=== PATIENT | female | born 1945 | race Caucasian/White ===

== ENCOUNTER 2019-04-18 14:11 | Emergency (ER) | payer OTHER, BC ==
--- NOTE | 2019-04-18 15:15 | RAD REPORT ---
EXAM DESCRIPTION: RADSacrum And Coccyx04/18/2019 3:03 pm CLINICAL HISTORY: Back pain status post fall FINDINGS: No fracture is seen. Mild anterior subluxation L4 on L5
[2019-04-18] MEDS ORDERED: CODEINE 30MG/APAP 300MG TAB ONE (15:26)
--- NOTE | 2019-04-18 15:40 | EDPHYS ---
Physician Documentation [facility] Name: Mary Parkinson Age: 73 yrs Sex: Female : 1945 Arrival Date: 04/18/2019 Time: 14:13 Bed 19 Private MD: ED Physician Silvano Ch HPI: 04/18 14:42 This 73 yrs old Female presents to ER via Ambulatory with complaints of jmm Tailbone Pain. 14:42 The patient presents with pain that is acute. The symptoms are located in the coccyx jmm area. Onset: The symptoms/episode began/occurred acutely, 1 week(s) ago. Modifying factors: The patient symptoms are alleviated by remaining still, the patient symptoms are aggravated by. This is a 73 year old female with a history of DM, HTN, that presents to the ED with complaints of tailbone pain after hitting a rock while tubing 1 week prior. Patient denies other injury. . Historical: - Allergies: 14:29 Sulfa (Sulfonamide Antibiotics); aj1 - PMHx: 14:29 Diabetes - NIDDM; Hypertension; aj1 - Immunization history:: Flu vaccine is up to date. - Social history:: Smoking status: Patient/guardian denies using tobacco. - Ebola Screening: : Patient denies travel to an Ebola-affected area in the 21 days before illness onset. ROS: 14:42 Constitutional: Negative for fever, chills, and weight loss, Cardiovascular: Negative jmm for chest pain, palpitations, and edema, Respiratory: Negative for shortness of breath, cough, wheezing, and pleuritic chest pain. 14:42 Back: Positive for pain with movement. 14:42 All other systems are negative. Exam: 14:42 Head/Face: atraumatic. Eyes: EOMI, no conjunctival erythema appreciated ENT: Moist jmm Mucus Membranes Neck: Trachea midline, Supple Chest/axilla: Normal chest wall appearance and motion. Cardiovascular: Regular rate and rhythm. No edema appreciated Respiratory: Normal respirations, no respiratory distress appreciated Abdomen/GI: Non distended, soft 14:42 Skin: General appearance color normal MS/ Extremity: Moves all extremities, no obvious deformities appreciated, no edema noted to the lower extremities Neuro: Awake and alert, normal gait Psych: Behavior is normal, Mood is normal, Patient is cooperative and pleasant 14:42 Constitutional: The patient appears in no acute distress, alert, awake. 14:42 Back: pain on palpation of the sacral region, no lumbar midline tenderness. Vital Signs: 14:29 BP 152 / 66; Pulse 85; Resp 18; Temp 98.9; Pulse Ox 96% on R/A; Weight 65.77 kg (R); aj1 Height 4 ft. 11 in. (149.86 cm) (R); 15:31 BP 148 / 71; Pulse 81; Resp 18; Pulse Ox 97% on R/A; Pain 5/10; em 14:29 Body Mass Index 29.29 (65.77 kg, 149.86 cm) aj1 MDM: 14:42 Patient medically screened. [facility] 15:37 Data reviewed: vital signs, nurses notes. Counseling: I had a detailed discussion with [facility] the patient and/or guardian regarding: the historical points, exam findings, and any diagnostic results supporting the discharge/admit diagnosis, radiology results, the need for outpatient follow up, to return to the emergency department if symptoms worsen or persist or if there are any questions or concerns that arise at home. ED course: Decreased pain on reevaluation. Xray negative for coccyx fracture. Patient advised to follow up with pcp and otherwise given strict return precautions. patient understood and agrees with the plan of care. . 04/18 14:47 Order name: Sacrum And Coccyx XRAY; Complete Time: 15:27 [facility] Administered Medications: 15:13 Drug: Tylenol #3 (300 mg-30 mg) 1 tablet Route: PO; em 15:31 Follow up: Response: No adverse reaction em Disposition: 16:54 Co-signature as Attending Physician, Silvano Ch MD. rn Disposition: 04/18/19 15:39 Discharged to Home. Impression: Sprain of other parts of lumbar spine and pelvis. - Condition is Stable. - Discharge Instructions: Tailbone Injury. - Prescriptions for Tylenol- Codeine #3 300-30 mg Oral Tablet - take 1 tablet by ORAL route every 6 hours As needed; 12 tablet. - Medication Reconciliation Form, Thank You Letter, Antibiotic Education, Prescription Opioid Use form. - Follow up: Private Physician; When: 2 - 3 days; Reason: Recheck today's complaints, Continuance of care, Re-evaluation by your physician. Signatures: Dispatcher [employer] EDElizabeth Gaytan, RN RN aj1 Jorden Whitlock PA PA Marshall Ramos, PLUMBING SERVICE TECHNICIAN PLUMBING SERVICE TECHNICIAN em Silvano Ch MD MD rn employee health: (The following items were deleted from the chart) 15:55 15:39 04/18/2019 15:39 Discharged to Home. Impression: Sprain of other parts of lumbar em spine and pelvis. Condition is Stable. Forms are Medication Reconciliation Form, Thank You Letter, Antibiotic Education, Prescription Opioid Use. Follow up: Private Physician; When: 2 - 3 days; Reason: Recheck today's complaints, Continuance of care, Re-evaluation by your physician. marie
--- NOTE | 2019-04-18 15:40 | ER ---
Nurse's Notes [facility] Name: Mary Parkinson Age: 73 yrs Sex: Female : 1945 Arrival Date: 04/18/2019 Time: 14:13 Bed 19 Private MD: Diagnosis: Sprain of other parts of lumbar spine and pelvis Presentation: 04/18 14:27 Presenting complaint: Patient states: "I went tubing with my daughter last week, my aj1 tube went over the rocks and I think it probably bruised my tailbone". Transition of care: patient was not received from another setting of care. Onset of symptoms was March 2019. Risk Assessment: Do you want to hurt yourself or someone else? Patient reports no desire to harm self or others. Initial Sepsis Screen: Does the patient meet any 2 criteria? No. Patient's initial sepsis screen is negative. Does the patient have a suspected source of infection? No. Patient's initial sepsis screen is negative. Care prior to arrival: None. 14:27 Method Of Arrival: Ambulatory aj 14:27 Acuity: HERSON 4 aj1 Triage Assessment: 14:29 General: Appears in no apparent distress. comfortable, Behavior is calm, cooperative, aj1 appropriate for age. Pain: Complains of pain in coccyx Pain currently is 7 out of 10 on a pain scale. EENT: No signs and/or symptoms were reported regarding the EENT system. Neuro: Level of Consciousness is awake, alert, obeys commands. Cardiovascular: Patient's skin is warm and dry. Respiratory: Airway is patent Respiratory effort is even, unlabored, Respiratory pattern is regular, symmetrical. GI: No signs and/or symptoms were reported involving the gastrointestinal system. : No signs and/or symptoms were reported regarding the genitourinary system. Derm: No signs and/or symptoms reported regarding the dermatologic system. Skin is pink, warm \\T\\ dry. normal. Musculoskeletal: No signs and/or symptoms reported regarding the musculoskeletal system. Circulation, motion, and sensation intact. Historical: - Allergies: 14: Sulfa (Sulfonamide Antibiotics); aj1 - PMHx: 14:29 Diabetes - NIDDM; Hypertension; aj1 - Immunization history:: Flu vaccine is up to date. - Social history:: Smoking status: Patient/guardian denies using tobacco. - Ebola Screening: : Patient denies travel to an Ebola-affected area in the 21 days before illness onset. Screenin:55 Abuse screen: Denies threats or abuse. Nutritional screening: No deficits noted. em Tuberculosis screening: No symptoms or risk factors identified. Fall Risk None identified. Assessment: 14:55 General: Appears in no apparent distress. comfortable, Behavior is calm, cooperative. em Pain: Complains of pain in coccyx Pain currently is 6 out of 10 on a pain scale. Neuro: Level of Consciousness is awake, alert, obeys commands, Oriented to person, place, time, situation. Cardiovascular: Capillary refill < 3 seconds Patient's skin is warm and dry. Respiratory: Airway is patent Respiratory effort is even, unlabored, Respiratory pattern is regular, symmetrical. GI:. GI: Patient currently denies nausea, vomiting. Derm: Skin is intact, is healthy with good turgor, Skin is pink, warm \\T\\ dry. Musculoskeletal: Capillary refill < 3 seconds, Range of motion: intact in all extremities. 15:31 Reassessment: Patient appears in no apparent distress at this time. Patient and/or em family updated on plan of care and expected duration. Pain level reassessed. Patient is alert, oriented x 3, equal unlabored respirations, skin warm/dry/pink. family at bedside. Vital Signs: 14:29 BP 152 / 66; Pulse 85; Resp 18; Temp 98.9; Pulse Ox 96% on R/A; Weight 65.77 kg (R); aj1 Height 4 ft. 11 in. (149.86 cm) (R); 15:31 BP 148 / 71; Pulse 81; Resp 18; Pulse Ox 97% on R/A; Pain 5/10; em 14:29 Body Mass Index 29.29 (65.77 kg, 149.86 cm) aj1 ED Course: 14:13 Patient arrived in ED. as 14:28 Triage completed. aj1 14:29 Arm band placed on Patient placed in an exam room. [facility] 14:35 Jorden Whitlock PA is PHCP. [facility] 14:35 Silvano Ch MD is Attending Physician. [facility] 14:48 Marshall Banks LVN is Primary Nurse. em 14:55 Patient has correct armband on for positive identification. Bed in low position. Call em light in reach. Adult w/ patient. 15:05 Sacrum And Coccyx XRAY In Process Unspecified. EDMS 15:48 No provider procedures requiring assistance completed. Patient did not have IV access em during this emergency room visit. Administered Medications: 15:13 Drug: Tylenol #3 (300 mg-30 mg) 1 tablet Route: PO; em 15:31 Follow up: Response: No adverse reaction em Outcome: 15:39 Discharge ordered by . marie 15:52 Discharged to home ambulatory, with family. em 15:52 Condition: good 15:52 Discharge instructions given to patient, Instructed on discharge instructions, follow up and referral plans. medication usage, Demonstrated understanding of instructions, follow-up care, medications, Prescriptions given X 1. 15:55 Patient left the ED. em Signatures: Dispatcher [employer] Elizabeth Blancas, RN RN aj1 Jorden Whitlock PA PA Marshall Ramos, BARGE ENGINEER BARGE ENGINEER em Tonia Vasquez as
== END 2019-04-18 15:55 | disposition home or self-care (01) ==
LOC: ER 14:11
DX: S33.5XXA Sprain of ligaments of lumbar spine, initial encounter (principal); S39.013A Strain of muscle, fascia and tendon of pelvis, initial encounter; W22.8XXA Striking against or struck by other objects, initial encounter; Y93.16 Activity, rowing, canoeing, kayaking, rafting and tubing; Y92.9 Unspecified place or not applicable; I10 Essential (primary) hypertension; Z88.2 Allergy status to sulfonamides
CPT/HCPCS: 72220; 99283

== ENCOUNTER 2019-06-27 19:36 | Emergency (ER) | payer OTHER, BC ==
--- OUTSIDE RECORDS SUMMARY | 2019-06-27 19:38 | XMS REPORT ---
:1945 Author Organization [facility] Address [address] [place] [address] Care Team Providers Name Role Phone LIZ POWELL Unavailable Unavailable Problems This patient has no known problems. Allergies, Adverse Reactions, Alerts This patient has no known allergies or adverse reactions. Medications This patient has no known medications. Results Test Description Test Time Test Comments Text Results Atomic Results Result Comments Accuc[facility]k 2017-09-05 12:03:00 Test Item Value Reference Range Comments Accuchek (test code=ACU) 264 mg/dL 70-110 [id number] 06:13:00 Test Item Value Reference Range Comments Accuchek (test code=ACU) 156 mg/dL 70-110 [id number] 05:22:00 Test Item Value Reference Range Comments Chemistry (test code=NA-T) 137 mmol/L 136-145 Chemistry (test code=K-T) 3.9 mmol/L 3.5-5.1 Chemistry (test code=CL) 100 mmol/L 98-107 Chemistry (test code=CO2) 30 mmol/L 23-31 Chemistry (test code=ANGP) 11 mmol/L 10-20 Chemistry (test code=BUN) 27 mg/dL 9.8-20.1 Chemistry (test code=CREATT) 0.83 mg/dL 0.6-1.1 Chemistry (test 67 Reference Range for Estimated code=EGFRMDRD) GFR: Greater than 90 mL/min/1.73 m2NOTE:The MDRD equation has not been validated for use with theelderly (over 70 years of age), women, patientswith serious comorbid condition or persons with extremes ofbody size, muscle mass, or nutritional status. Chemistry (test code=BCR) 32.53 Chemistry (test code=GLU-T) 153 mg/dL 83-110 Chemistry (test code=CA) 8.9 mg/dL 7.8-10.44 Chemistry (test code=ALB) 3.5 g/dL 3.4-4.8 Chemistry (test code=PHOS) 3.3 mg/dL 2.3-4.7 [id number] 05:22:00 Test Item Value Reference Range Comments Chemistry (test code=MG) 2.0 mg/dL 1.6-2.6 [id number] 20:57:00 Test Item Value Reference Range Comments Accuchek (test code=ACU) 246 mg/dL 110 [id number] 16:44:00 Test Item Value Reference Range Comments Accuchek (test code=ACU) 284 mg/dL [id number] 12:28:00 Test Item Value Reference Range Comments Accuchek (test code=ACU) 172 mg/dL [id number] 06:18:00 Test Item Value Reference Range Comments Accuchek (test code=ACU) 146 mg/dL [id number] 05:36:00 Test Item Value Reference Range Comments Chemistry (test code=NA-T) 138 mmol/L 136-145 Chemistry (test code=K-T) 3.8 mmol/L 3.5-5.1 Chemistry (test code=CL) 98 mmol/L 98-107 Chemistry (test code=CO2) 32 mmol/L 23-31 Chemistry (test code=ANGP) 12 mmol/L 10-20 Chemistry (test code=BUN) 20 mg/dL 9.8-20.1 Chemistry (test code=CREATT) 0.81 mg/dL 0.6-1.1 Chemistry (test 69 Reference Range for Estimated code=EGFRMDRD) GFR: Greater than 90 mL/min/1.73 m2NOTE:The MDRD equation has not been validated for use with theelderly (over 70 years of age), women, patientswith serious comorbid condition or persons with extremes ofbody size, muscle mass, or nutritional status. Chemistry (test code=BCR) 24.69 Chemistry (test code=GLU-T) 169 mg/dL 83-110 Chemistry (test code=CA) 9.3 mg/dL 7.8-10.44 Chemistry (test code=ALB) 3.6 g/dL 3.4-4.8 Chemistry (test code=PHOS) 3.2 mg/dL 2.3-4.7 [id number] 05:36:00 Test Item Value Reference Range Comments Chemistry (test code=MG) 2.0 mg/dL 1.6-2.6 [id number] 21:02:00 Test Item Value Reference Range Comments Accuchek (test code=ACU) 177 mg/dL 70-110 [id number] 17:28:00 Test Item Value Reference Range Comments Accuchek (test code=ACU) 122 mg/dL 70-110 Chemistry - [id number] 06:21:00 Test Item Value Reference Range Comments Chemistry - Specials (test code=TSH3) 2.0892 uIU/mL 0.35-4.94 [id number] 06:05:00 Test Item Value Reference Range Comments Chemistry (test code=NA-T) 140 mmol/L 136-145 Chemistry (test code=K-T) 3.4 mmol/L 3.5-5.1 Chemistry (test code=CL) 100 mmol/L 98-107 Chemistry (test code=CO2) 32 mmol/L 23-31 Chemistry (test code=ANGP) 11 mmol/L 10-20 Chemistry (test code=BUN) 17 mg/dL 9.8-20.1 Chemistry (test code=CREATT) 0.76 mg/dL 0.6-1.1 Chemistry (test 74 Reference Range for Estimated code=EGFRMDRD) GFR: Greater than 90 mL/min/1.73 m2NOTE:The MDRD equation has not been validated for use with theelderly (over 70 years of age), women, patientswith serious comorbid condition or persons with extremes ofbody size, muscle mass, or nutritional status. Chemistry (test code=BCR) 22.37 Chemistry (test code=GLU-T) 127 mg/dL 83-110 Chemistry (test code=CA) 9.0 mg/dL 7.8-10.44 Chemistry (test code=ALB) 3.5 g/dL 3.4-4.8 Chemistry (test code=PHOS) 3.8 mg/dL 2.3-4.7 [id number] 06:05:00 Test Item Value Reference Range Comments Chemistry (test code=CHOL) 114 mg/dl < 200 Desired Chemistry (test code=TRIG) 169 mg/dL Less than 150 Chemistry (test code=HDL) 31 mg/dL >60 Neg Risk Adult HDL levels in terms of risk for Coronary Heart Disease > or Equal to 60 mg/dL Negative Risk < 40 mg/dL HIGH Risk Chemistry (test code=LDL) 49 mg/dL Levels in terms of risk for coronary heart disease: Desirable: Less than 130 mg/dL Borderline High Risk: 130 - 159 mg/dL High Risk: Greater than 160 mg/dL Chemistry (test code=CRISK) 3.7 Less than 4.5 Adult levels in terms of risk for Coronary Heart Disease: Dangerous level: Greater than 8.3 High: 5.6 - 8.3 Average: 3.7 - 5.6 Below average: 2.5 - 3.7 Protection probable: Less than 2.5 [id number] 05:50:00 Test Item Value Reference Range Comments Accuchek (test code=ACU) 124 mg/dL 70-110 [id number] 21:59:00 Test Item Value Reference Range Comments Accuchek (test code=ACU) 116 mg/dL 70-110 [id number] 17:09:00 Test Item Value Reference Range Comments Accuchek (test code=ACU) 193 mg/dL 70-110 [id number] 15:43:00 Test Item Value Reference Range Comments Chemistry (test Less than 0.010 < 0.028 code=TROPI-T) ng/mL Reference Range 0.00 - 0.028 ng/mL Negative 0.029 - 0.29 ng/mL Indeterminate Greater or Equal to 0.3 ng/mL Strongly suggests ME [id number] 14:01:00 Test Item Value Reference Range Comments Accuchek (test code=ACU) 121 mg/dL 70-110 [id number] 13:46:00 Test Item Value Reference Range Comments Chemistry - Specials (test 14.60 ng/mL 7.0-31.4 NOTE: New Ranges Effective code=FOLATE) 04/07/02 Deficient: 0.35 - 3.37 ng/mL Indeterminate: 3.38 - 5.38 ng/mL Normal: Greater than 5.38 ng/mL Chemistry - Specials (test 206 pg/mL 211-911 code=VITB12) [id number] 13:17:00 Test Item Value Reference Range Comments Chemistry (test 0.010 ng/mL < 0.028 code=TROPI-T) Reference Range 0.00 - 0.028 ng/mL Negative 0.029 - 0.29 ng/mL Indeterminate Greater or Equal to 0.3 ng/mL Strongly suggests ME [id number] 13:10:00 Test Item Value Reference Range Comments Chemistry (test code=PHOS) 3.6 mg/dL 2.3-4.7 [id number] 13:10:00 Test Item Value Reference Range Comments Chemistry (test code=MG) 1.5 mg/dL 1.6-2.6 [id number] 10:49:00 Test Item Value Reference Range Comments Chemistry (test 3.3 ng/mL 0-6.6 code=CKMBM-T) Chemistry (test Less than 0.010 < 0.028 code=TROPI-T) ng/mL Reference Range 0.00 - 0.028 ng/mL Negative 0.029 - 0.29 ng/mL Indeterminate Greater or Equal to 0.3 ng/mL Strongly suggests ME Chemistry - BNP, HgbA1c, [id number] 10:16:00 Test Item Value Reference Range Comments Chemistry - BNP, HgbA1c, PTHi (test code=BNP) 75.3 pg/mL 0-100 [id number] 10:14:00 Test Item Value Reference Range Comments Chemistry (test code=CK) 151 U/L 29-168 [id number] 10:06:00 Test Item Value Reference Range Comments Chemistry (test code=NA-T) 140 mmol/L 136-145 Chemistry (test code=K-T) 3.5 mmol/L 3.5-5.1 Chemistry (test code=CL) 99 mmol/L 98-107 Chemistry (test code=CO2) 34 mmol/L 23-31 Chemistry (test code=ANGP) 11 mmol/L 10-20 Chemistry (test code=BUN) 14 mg/dL 9.8-20.1 Chemistry (test code=CREATT) 0.82 mg/dL 0.6-1.1 Chemistry (test 68 Reference Range for Estimated code=EGFRMDRD) GFR: Greater than 90 mL/min/1.73 m2NOTE:The MDRD equation has not been validated for use with theelderly (over 70 years of age), women, patientswith serious comorbid condition or persons with extremes ofbody size, muscle mass, or nutritional status. Chemistry (test code=GLU-T) 208 mg/dL 83-110 Chemistry (test code=CA) 9.5 mg/dL 7.8-10.44 Chemistry (test code=TBILI) 1.0 mg/dL 0.2-1.2 Chemistry (test code=TP) 7.5 g/dL 6.0-8.3 Chemistry (test code=ALB) 4.0 g/dL 3.4-4.8 Chemistry (test code=GLOB) 3.5 g/dL 2.4-3.5 Chemistry (test code=AG) 1.1 g/dL 1.2-2.2 Chemistry (test code=ALP) 69 U/L 40-150 Chemistry (test code=AST) 19 U/L 5-34 Chemistry (test code=ALT) 20 U/L 8-55 [id number] 10:06:00 Test Item Value Reference Range Comments Chemistry (test code=LIP) 29 U/L 8-78 [id number] 10:01:00 Test Item Value Reference Range Comments Coagulation (test 13.5 SEC 12.0-14.7 code=PT-T) Coagulation (test 1.0 ATTENTION: READ code=INR) CAREFULLY -The recommended therapeutic ranges for oral anticoagulanttreatments are: Low Intensity: 1.5 - 2.0 Moderate Intensity: 2.0 - 3.0 High Intensity (1): 2.5 - 3.5 High Intensity (2): 3.0 - 4.0 CRITICAL: > 4.0 Anticoagulant? NONEMedical Necessity SUSPECT COAGULOPATHYAnticoagulant? NONEMedical Necessity: SUSP [id number] 10:01:00 Test Item Value Reference Range Comments Coagulation (test code=PTT) 28.9 SEC 22.9-36.1 Anticoagulant? NONEMedical Necessity SUSPECT COAGULOPATHYAnticoagulant? NONEMedical Necessity: SUSP [id number] 10:01:00 Test Item Value Reference Range Comments Coagulation (test 0.31 *mcg/mL 0.27-0.43 * Reference Range Units: code=DDIMTT) mcg/mL of fibrinogen equivalent units(FEU)Based upon a retrospective study of [facility] patients in February 2006, a result of"Less than 0.44 mcg/mL FEU" is predictive of the absence ofa DVT or PE. Anticoagulant? NONEMedical Necessity SUSPECT COAGULOPATHYAnticoagulant? NONEMedical Necessity: SUSP [id number] 09:43:00 Test Item Value Reference Range Comments Hematology (test code=WBCT) 8.3 thou/uL 4.8-10.8 Hematology (test code=RBCT) 4.48 mill/uL 4.20-5.40 Hematology (test code=HGBT) 13.5 g/dL 12.0-16.0 Hematology (test code=HCTT) 41.5 % 36.0-47.0 Hematology (test code=MCV) 92.5 fl 81.0-99.0 Hematology (test code=MCH) 30.1 pg 27.0-31.0 Hematology (test code=MCHC) 32.6 g/dL 32.0-36.0 Hematology (test code=RDW) 12.0 % 11.5-14.5 Hematology (test code=PLTT) 213 thou/uL 130-400 Hematology (test code=MPV) 6.7 fL 7.4-10.4 Hematology (test code=%NEUT) 60.3 % 42.0-75.0 Hematology (test code=%LYMPH) 28.7 % 21.0-51.0 Hematology (test code=%MONO) 6.2 % 0.0-10.0 Hematology (test code=%EOS) 4.1 % 0.0-10.0 Hematology (test code=%BASO) 0.8 % 0.0-1.0 Hematology (test code=NEUT#) 5.0 thou/uL 1.40-6.50 Hematology (test code=LYMPH#) 2.4 thou/uL 1.20-3.40 Hematology (test code=MONO#) 0.5 thou/uL 0.11-0.59 Hematology (test code=EOS#) 0.3 thou/uL 0.0-0.7 Hematology (test code=BASO#) 0.1 thou/uL 0.0-0.2
[2019-06-27] MEDS ORDERED: DOXYCYCLINE 100 MG CAP PO ONE (20:18)
[2019-06-27] MEDS ORDERED: CODEINE 30MG/APAP 300MG TAB ONE (20:18)
[2019-06-27] MEDS ORDERED: SMZ./TMP. 800/160 MG TABLET ONE (20:18)
[2019-06-27] MEDS ORDERED: CLINDAMYCIN HCL 150 MG CAP ONE (20:22)
[2019-06-27] MEDS ORDERED: CLINDAMYCIN IV 150 MG/ML (4 mL) VIAL ONE (20:23)
--- NOTE | 2019-06-27 20:27 | ER ---
Nurse's Notes [facility] Name: Mary Parkinson Age: 74 yrs Sex: Female : 1945 Arrival Date: 06/27/2019 Time: 19:41 Bed 5 Private MD: Diagnosis: Cellulitis of right upper limb Presentation: 06/27 19:45 Presenting complaint: Patient states: that she got her nails done yesterday and now is fc having redness, warm and yellow drainage around left thumb nail. [place] Also has red, scabbed areas to left abd, area is tender to touch. Transition of care: patient was not received from another setting of care. Onset of symptoms was June 26, 2019. Risk Assessment: Do you want to hurt yourself or someone else? Patient reports no desire to harm self or others. Initial Sepsis Screen: Does the patient meet any 2 criteria? No. Patient's initial sepsis screen is negative. Does the patient have a suspected source of infection? Yes: Skin breakdown/wound. Care prior to arrival: None. 19:45 Method Of Arrival: Ambulatory fc 19:45 Acuity: HERSON 3 fc Historical: - Allergies: 20:06 Sulfa (Sulfonamide Antibiotics); fc - Home Meds: 20:06 amlodipine oral [Active]; Lisinopril Oral [Active]; Atenolol Oral [Active]; Metformin fc Oral [Active]; Lantus Sub-Q [Active]; Lasix Oral [Active]; B12 [Active]; Potassium Chloride Oral [Active]; Trulicity subcutaneous subcutaneous [Active]; - PMHx: 20:06 Diabetes - NIDDM; Hypertension; Pneumonia; edema; fc - PSHx: 20:06 Tonsillectomy; fc - Immunization history:: Last tetanus immunization: unknown. - Social history:: Smoking status: Patient/guardian denies using tobacco, Patient uses alcohol, but reports only rare drinking. - Ebola Screening: : Patient negative for fever greater than or equal to 101.5 degrees Fahrenheit, and additional compatible Ebola Virus Disease symptoms Patient denies exposure to infectious person Patient denies travel to an Ebola-affected area in the 21 days before illness onset. Screenin:53 Abuse screen: Denies threats or abuse. Denies injuries from another. Nutritional ak1 screening: No deficits noted. Tuberculosis screening: No symptoms or risk factors identified. Fall Risk None identified. Assessment: 19:53 General: Appears in no apparent distress. Behavior is calm, cooperative. Pain: ak1 Complains of pain in dorsal aspect of distal phalanx of left thumb and left thumbnail. Neuro: Level of Consciousness is awake, alert, obeys commands, Oriented to person, place, time, situation, Bulk System Operator are equal bilaterally Moves all extremities. Gait is steady, Speech is normal, Facial symmetry appears normal. Cardiovascular: No deficits noted. Respiratory: Airway is patent Respiratory effort is even, unlabored, Respiratory pattern is regular. GI: wounds to left abd. : No signs and/or symptoms were reported regarding the genitourinary system. EENT: No signs and/or symptoms were reported regarding the EENT system. Derm: wound to left abd and wound to left thumb with swelling. Musculoskeletal: No signs and/or symptoms reported regarding the musculoskeletal system. 20:29 Reassessment: No changes from previously documented assessment. Patient and/or family tl1 updated on plan of care and expected duration. Pain level reassessed. Patient is alert, oriented x 3, equal unlabored respirations, skin warm/dry/pink. Vital Signs: 19:45 BP 161 / 74; Pulse 89; Resp 18; Temp 98.3(O); Pulse Ox 95% on R/A; Weight 65.77 kg (R); fc Height 4 ft. 11 in. (149.86 cm) (R); Pain 8/10; 20:41 BP 128 / 62; Pulse 87; Resp 17; Pulse Ox 96% on R/A; Pain 8/10; tl1 19:45 Body Mass Index 29.29 (65.77 kg, 149.86 cm) ED Course: 19:41 Patient arrived in ED. mr 19:45 Arm band placed on Patient placed in an exam room, on a stretcher. 19:53 Magui Snow, RN is Primary Nurse. ak1 19:53 Patient has correct armband on for positive identification. Bed in low position. Call ak1 light in reach. Side rails up X 1. Adult w/ patient. Pulse ox on. NIBP on. 19:56 Fallon Jackson FNP is PHCP. sc 19:56 Nima Ames MD is Attending Physician. sc 20:02 Triage completed. 20:42 Assist provider with bone marrow aspiration. Patient did not have IV access during this tl1 emergency room visit. Administered Medications: 20:25 Drug: Doxycycline 100 mg Route: PO; tl1 20:42 Follow up: Response: No adverse reaction; No change in condition tl1 20:26 Drug: Tylenol #3 (300 mg-30 mg) 1 tablet Route: PO; tl1 20:41 Follow up: Response: No adverse reaction; No change in condition tl1 20:27 Not Given (Duplicate Order): Clindamycin 900 mg IM once tl1 20:28 Drug: Clindamycin 300 mg Route: IM; Site: right gluteus; tl1 20:41 Follow up: Response: No adverse reaction; No change in condition tl1 Point of Care Testing: Blood Glucose: 20:00 Blood Glucose: 334 mg/dL; tl1 Ranges: Outcome: 20:26 Discharge ordered by . sc 20:42 Discharged to home ambulatory, with family. tl1 20:42 Condition: good 20:42 Discharge instructions given to patient, family, Instructed on discharge instructions, follow up and referral plans. medication usage, Demonstrated understanding of instructions, follow-up care, medications, Prescriptions given X 3. 20:42 Patient left the ED. tl1 Signatures: Fallon Jackson, MARVA EDUCATIONAL PARAPROFESSIONAL sc Whitney HiltonPeggy, RN MAURICE Danika Correia RN RN tl1 Magui Snow RN RN ak1
--- NOTE | 2019-06-27 20:28 | EDPHYS ---
Physician Documentation [facility] Name: Mary Parkinson Age: 74 yrs Sex: Female : 1945 Arrival Date: 06/27/2019 Time: 19:41 Bed 5 Private MD: ED Physician Nima Ames HPI: 06/27 20:23 This 74 yrs old Female presents to ER via Ambulatory with complaints of nh Finger Infection. 20:23 Onset: The symptoms/episode began/occurred yesterday. Associated signs and symptoms: nh The patient has no apparent associated signs or symptoms. The patient has not experienced similar symptoms in the past. The patient has not recently seen a physician. Historical: - Allergies: 20:06 Sulfa (Sulfonamide Antibiotics); fc - Home Meds: 20:06 amlodipine oral [Active]; Lisinopril Oral [Active]; Atenolol Oral [Active]; Metformin fc Oral [Active]; Lantus Sub-Q [Active]; Lasix Oral [Active]; B12 [Active]; Potassium Chloride Oral [Active]; Trulicity subcutaneous subcutaneous [Active]; - PMHx: 20:06 Diabetes - NIDDM; Hypertension; Pneumonia; edema; fc - PSHx: 20:06 Tonsillectomy; fc - Immunization history:: Last tetanus immunization: unknown. - Social history:: Smoking status: Patient/guardian denies using tobacco, Patient uses alcohol, but reports only rare drinking. - Ebola Screening: : Patient negative for fever greater than or equal to 101.5 degrees Fahrenheit, and additional compatible Ebola Virus Disease symptoms Patient denies exposure to infectious person Patient denies travel to an Ebola-affected area in the 21 days before illness onset. ROS: 20:23 Constitutional: Negative for fever, chills, and weight loss, Eyes: Negative for injury, nh pain, redness, and discharge, ENT: Negative for injury, pain, and discharge, Neck: Negative for injury, pain, and swelling, Cardiovascular: Negative for chest pain, palpitations, and edema, Respiratory: Negative for shortness of breath, cough, wheezing, and pleuritic chest pain, Abdomen/GI: Negative for abdominal pain, nausea, vomiting, diarrhea, and constipation, Back: Negative for injury and pain, : Negative for injury, bleeding, discharge, and swelling, MS/Extremity: Negative for injury and deformity, Neuro: Negative for headache, weakness, numbness, tingling, and seizure, Psych: Negative for depression, anxiety, suicide ideation, homicidal ideation, and hallucinations, Allergy/Immunology: Negative for hives, rash, and allergies, Endocrine: Negative for neck swelling, polydipsia, polyuria, polyphagia, and marked weight changes. 20:23 Skin: Positive for erythema, of the left lower quadrant and left thumbnail. Exam: 20:23 Constitutional: This is a well developed, well nourished patient who is awake, alert, nh and in no acute distress. Head/Face: Normocephalic, atraumatic. Eyes: Pupils equal round and reactive to light, extra-ocular motions intact. Lids and lashes normal. Conjunctiva and sclera are non-icteric and not injected. Cornea within normal limits. Periorbital areas with no swelling, redness, or edema. ENT: Nares patent. No nasal discharge, no septal abnormalities noted. Tympanic membranes are normal and external auditory canals are clear. Oropharynx with no redness, swelling, or masses, exudates, or evidence of obstruction, uvula midline. Mucous membranes moist. Neck: Trachea midline, no thyromegaly or masses palpated, and no cervical lymphadenopathy. Supple, full range of motion without nuchal rigidity, or vertebral point tenderness. No Meningismus. Chest/axilla: Normal chest wall appearance and motion. Nontender with no deformity. No lesions are appreciated. Cardiovascular: Regular rate and rhythm with a normal S1 and S2. No gallops, murmurs, or rubs. Normal PMI, no JVD. No pulse deficits. Respiratory: Lungs have equal breath sounds bilaterally, clear to auscultation and percussion. No rales, rhonchi or wheezes noted. No increased work of breathing, no retractions or nasal flaring. Abdomen/GI: Soft, non-tender, with normal bowel sounds. No distension or tympany. No guarding or rebound. No evidence of tenderness throughout. Back: No spinal tenderness. No costovertebral tenderness. Full range of motion. MS/ Extremity: Pulses equal, no cyanosis. Neurovascular intact. Full, normal range of motion. 20:23 Skin: cellulitis, that is moderate, on the abdomen and left lower quadrant. Vital Signs: 19:45 BP 161 / 74; Pulse 89; Resp 18; Temp 98.3(O); Pulse Ox 95% on R/A; Weight 65.77 kg (R); fc Height 4 ft. 11 in. (149.86 cm) (R); Pain 8/10; 20:41 BP 128 / 62; Pulse 87; Resp 17; Pulse Ox 96% on R/A; Pain 8/10; tl1 19:45 Body Mass Index 29.29 (65.77 kg, 149.86 cm) fc MDM: 19:56 Patient medically screened. nh 20:23 Data reviewed: vital signs, nurses notes, I have discussed the patient's nh presentation/case with the attending Emergency Department Physician; and as a result, I will discharge patient. Counseling: I had a detailed discussion with the patient and/or guardian regarding: the historical points, exam findings, and any diagnostic results supporting the discharge/admit diagnosis, the need for outpatient follow up, to return to the emergency department if symptoms worsen or persist or if there are any questions or concerns that arise at home. Administered Medications: 20:25 Drug: Doxycycline 100 mg Route: PO; tl1 20:42 Follow up: Response: No adverse reaction; No change in condition tl1 20:26 Drug: Tylenol #3 (300 mg-30 mg) 1 tablet Route: PO; tl1 20:41 Follow up: Response: No adverse reaction; No change in condition tl1 20:27 Not Given (Duplicate Order): Clindamycin 900 mg IM once tl1 20:28 Drug: Clindamycin 300 mg Route: IM; Site: right gluteus; tl1 20:41 Follow up: Response: No adverse reaction; No change in condition tl1 Point of Care Testing: Blood Glucose: 20:00 Blood Glucose: 334 mg/dL; tl1 Ranges: Critical Glucose Levels:Adult <50 mg/dl or >400 mg/dl <40 mg/dl or >180 mg/dl Disposition: 06/27/19 20:26 Discharged to Home. Impression: Cellulitis of right upper limb. - Condition is Stable. - Discharge Instructions: Cellulitis, Adult. - Prescriptions for Clindamycin HCl 300 mg Oral Capsule - take 1 capsule by ORAL route every 6 hours for 10 days; 40 capsule. Doxycycline Hyclate 100 mg Oral Tablet - take 1 tablet by ORAL route every 12 hours; 20 tablet. Tylenol- Codeine #3 300-30 mg Oral Tablet - take 1 tablet by ORAL route every 6 hours As needed; 15 tablet. - Medication Reconciliation Form, Thank You Letter, Antibiotic Education, Prescription Opioid Use form. - Follow up: Private Physician; When: 2 - 3 days; Reason: Recheck today's complaints. - Problem is new. - Symptoms are unchanged. Signatures: Fallon Jackson, WATERWORKS SUPERVISOR WATERWORKS SUPERVISOR [place] Peggy Rivas RN RN Danika Correia RN RN tl1 Corrections: (The following items were deleted from the chart) 20:42 20:26 06/27/2019 20:26 Discharged to Home. Impression: Cellulitis of right upper limb. tl1 Condition is Stable. Forms are Medication Reconciliation Form, Thank You Letter, Antibiotic Education, Prescription Opioid Use. Follow up: Private Physician; When: 2 - 3 days; Reason: Recheck today's complaints. Problem is new. Symptoms are unchanged. oh
[2019-06-28 02:53] VITALS: TEMP 98.3
[2019-06-28 02:54] VITALS: BP 128/62; O2SAT 96
== END 2019-06-27 20:42 | disposition home or self-care (01) ==
LOC: ER 19:36
DX: L03.113 Cellulitis of right upper limb (principal); E11.9 Type 2 diabetes mellitus without complications; I10 Essential (primary) hypertension; Z88.2 Allergy status to sulfonamides
CPT/HCPCS: 82962; 96372; 99284; S0077